=== PATIENT | female | born 1975 ===

== ENCOUNTER 2020-12-25 08:22 | Outpatient (CLI) | payer OTHER | END 2020-12-25 09:44 | disposition home or self-care (01) | LOC: OFIC 805 08:22 | PROVIDERS: ATTEND Otolaryngology Otology & Neurotology | DX: J38.01 Paralysis of vocal cords and larynx, unilateral (principal); R49.0 Dysphonia; J31.0 Chronic rhinitis ==

== ENCOUNTER 2021-01-08 08:45 | Outpatient (CLI) | payer OTHER | END 2021-01-08 09:54 | disposition home or self-care (01) | LOC: OFIC 805 08:45 | PROVIDERS: ATTEND Otolaryngology Otology & Neurotology | DX: J38.01 Paralysis of vocal cords and larynx, unilateral (principal); R49.0 Dysphonia; J31.0 Chronic rhinitis ==